=== PATIENT | male | born 1975 | race African-American/Black ===

== ENCOUNTER 2016-07-20 20:34 | Inpatient (IN) | payer OTHER ==
--- NOTE | ~2016-07-20 | CO ---
Unit #: [id number] #: [id number] Patient: GRICEL BACON JR [id number] [address] [place], [place] [address] [id number] MR#: [id number] NAME: GRICEL BACON ROOM: 215 Age: 40 Sex: M Admission Date: 07/21/2016 : 1975 Attending Physician: Julio César Fiath III, M.D. Primary Care Physician: No Primary Care Physician CONSULTATION REPORT REASON FOR CONSULTATION Medical management. HISTORY OF PRESENT ILLNESS The patient is a 40-year-old -Citizen Of [place] male, relatively healthy, who states that approximately 48 hours ago he began developing crampy abdominal pain and/or discomfort, nausea, vomiting episodes as well. He had several episodes of loose stool. He denied any sick contacts. He went to a local [facility] who instructed him to go the emergency room for evaluation. While he was evaluated in the emergency room, he underwent a CT abdomen and pelvis which showed colitis and he was actually admitted under the service of [facility]. We were asked to manage his blood pressure as his systolic blood pressures remained elevated greater than 160 despite being on his home medications. PAST MEDICAL HISTORY 1. History of hypertension. 2. Alcohol abuse. 3. Ongoing tobacco abuse. SOCIAL HISTORY The patient smokes on a daily basis. He drinks fairly frequently anywhere from five to six days a week. He has been doing so for many years. He denies any illicit drugs. He states that occasionally he does smoke marijuana. PAST SURGICAL HISTORY None. ALLERGIES No known drug allergies. HOME MEDICATIONS Norvasc 5 mg p.o. daily. REVIEW OF SYSTEMS Please see HPI. Twelve point otherwise negative except for those positives noted in the HPI. PHYSICAL EXAMINATION VITAL SIGNS: Temperature 98.6, pulse 86, respiratory rate 18, blood Unit #: [id number] #: [id number] Patient: GRICEL BACON JR pressure 172/111. GENERAL APPEARANCE: The patient is a thin 40-year-old -Citizen Of [place] male lying comfortably, in no acute distress. HEAD EXAM: Atraumatic, normocephalic. EAR EXAM: Tympanic membranes do not reveal any erythema or injection. NECK EXAM: Supple. CVS: S1, S2 without murmur. RESPIRATORY: Clear. GI/ABDOMEN: Diffuse tenderness noted. No rebound, no guarding. EXTREMITIES: Lower extremity exam - no evidence of any lower extremity edema. No calf tenderness. NEUROLOGICAL EXAM: The patient is A and O x3. No evidence of any focal neuro deficits. PSYCHIATRIC: The patient demonstrates normal affect and mood. DIAGNOSTIC STUDIES LABORATORY: Initial laboratory studies shows a CBC with a white count of 10.5, hemoglobin of 15.3. IMAGING: Aforementioned CT abdomen and pelvis performed showing findings consistent with thick walled extending colitis with associated pericolic soft tissue stranding. The patient was also noted to have atherosclerotic involvement of the abdominal aorta, superior mesenteric artery as well as inferior mesenteric artery. Both appear to be patent. However, his abdominal aorta did appear to have some atherosclerotic involvement. There also was noted to be a right middle lobe infiltrate seen on the aforementioned CT. His initial urinalysis was also positive. Culture is currently pending. Initial electrolytes were within normal limits. Lipase level at 19. LFTs normal. INITIAL ADMISSION DIAGNOSES 1. Colitis. 2. Atherosclerosis within the abdominal aortic area. 3. Right middle lobe infiltrate seen on CT abdomen and pelvis. 4. Hypertension. 5. Alcohol abuse. 6. Tobacco abuse. 7. Questionable compliance with blood pressure medications. 8. Intractable nausea and vomiting. PLAN IV antibiotics per [facility]. I will also add a CT chest non-contrast to ascertain if true infiltrate is seen or not. Will also obtain vascular consultation in regards to the atherosclerosis. He may ultimately require CT abdomen with contrast but I will defer that decision to vascular. Pain management has already been written for by primary service. We will resume his Norvasc 5 mg on a daily basis. If it does not control his blood pressure, this will be increased. He will have p.r.n. medications as well. Thank you Dr. Faith for this consultation. We will continue to follow the patient along with you. Please note - secondary to patient's history of alcohol abuse, I will initiate a banana bag and will watch for any evidence of DTs. Plans have been reviewed with patient in detail. He is full code. Unit #: [id number] #: [id number] Patient: GRICEL BACON JR Dictated by... Ervin Antoine/shayla TD: 07/21/2016 12:19 JOB #: [id number] CONSULTATION REPORT Page 1 of 1 X Gilma Doty MD CONSULTATION REPORT
--- NOTE | ~2016-07-20 | CT2 ---
[facility] A Service of [facility] RADIOLOGY TEXT RESULTS PATIENT: GRICEL BACON JR LOCATION: C2A : [birth year] UNIT #: [id number] AGE: [address]: Julio César Faith III, MD SEX: M ORDER DR: [id number] [facility] [address] [facility]. [place], [place] [address] [id number] I MR#: [id number] Acc #: [id number] NAME: GRICEL BACON : 1975 SEX: M STUDY DATE/TIME: 07/20/2016 22:31 UNIT: [facility] ROOM: [facility] STUDY DESCRIPTION: CT Abd and Pelv W Cont Attending Physician: Julio César Faith III, M.D. Ordering Physician: William Samuels D.O. Primary Care Physician: Primary Care Physician No MEDICAL IMAGING REPORT This report is preliminary unless electronic signature is present EXAM CT of the abdomen and pelvis with contrast INDICATIONS Nausea, vomiting and diarrhea since this morning. Patient also reports abdominal pain across the midline. TECHNIQUE Axial CT images were obtained from the dome of the diaphragm through the symphysis pubis following the administration of oral and intravenous contrast material. This CT exam was performed with one or more of the following radiation dose reduction techniques: automatic exposure control, adjustment of mA and/or kV according to patient size, and iterative reconstruction. FINDINGS There is a 1.0 cm area of nodularity seen within the right middle lobe. This may simply reflect some atelectasis or infiltrate but short-term CT followup in three months is recommended to document stability or resolution. Spleen is rather atrophic in appearance. There may be some diffuse hepatic steatosis incompletely evaluated on this contrast-enhanced study. No focal hepatic lesions are seen. Gallbladder appears unremarkable. Adrenal glands appear unremarkable as does the pancreas. Kidneys appear normal. No solid or cystic renal masses are seen. Gallbladder is also unremarkable. This patient has atherosclerotic involvement of the abdominal aorta which continues into the iliac vessels. Prostate gland and urinary bladder within normal limits. This patient's colon is diffusely thick-walled. This extends from the stomach to the splenic flexure. There is pericolonic soft tissue stranding. Findings are felt to represent colitis. The patient's appendix proximally appears somewhat prominent in size measuring up to about 7.0 mm. However, I think that the appearance actually may be related to some secondary involvement [facility] A Service of [facility] RADIOLOGY TEXT RESULTS PATIENT: GRICEL BACON JR LOCATION: [facility] [address] : [birth year] UNIT #: [id number] AGE: [address]: Julio César Faith III, MD SEX: M ORDER DR: from the inflammation of the cecum rather than to actual appendicitis. This colitis could be infectious or inflammatory in nature but distribution and the presence of atherosclerotic disease would certainly raise the possibility of ischemic colitis, although the superior mesenteric artery and inferior mesenteric artery both appear widely patent. Patient is noted have a separate origin of the left gastric artery from the abdominal aorta. No pneumatosis or free air is seen. No free fluid is identified. Review of bony windows does not demonstrate any aggressive osseous abnormalities. IMPRESSION 1. This patient's colon appears thick-walled extending from the cecum all the way to the splenic flexure. There is associated pericolonic soft tissue stranding. Findings are characteristic of colitis. Infectious or inflammatory etiologies would be in the differential, although ischemic colitis would be another consideration given the distribution. Of note, while the patient does have atherosclerotic involvement of the abdominal aorta, the superior mesenteric artery and inferior mesenteric artery both appear widely patent. 2. The patient's appendix does appear somewhat dilated near its confluence with the cecum, however I suspect this is probably related to some secondary involvement by the inflammation within the cecum. Certainly the more distal aspect of the appendix does not appear dilated. 3. The patient does have some consolidation within the right middle lobe. This certainly could reflect some atelectasis or even some infiltrate. However I would suggest short-term CT followup in three months to document stability or resolution. 4. Please see the body of the report for any other additional incidental findings. Dictated by... Eloisa Mccall M.D. THIS IS AN ELECTRONICALLY VERIFIED REPORT Eloisa Mccall M.D. at 07/21/2016 11:01 AM DEBORAH/rigo TD: 07/21/2016 08:46 JOB #: [id number] MEDICAL IMAGING REPORT Page 1 of 1 COPY
--- NOTE | ~2016-07-20 | HP ---
Unit #: [id number] #: [id number] Patient: GRICEL RVIAS JR [id number] [address] [place], [place] [address] [id number] I MR#: [id number] NAME: GRICEL RIVAS ROOM: 215 Age: 40 Sex: M Admission Date: 07/21/2016 : 1975 Attending Physician: Julio César Faith III, M.D. Primary Care Physician: No Primary Care Physician HISTORY AND PHYSICAL HISTORY OF PRESENT ILLNESS Mr. Rivas is a 40-year-old black male who was fairly well until approximately 48 hours ago when he started developing crampy abdominal pain with nausea, vomiting and two episodes of explosive diarrhea. The patient was seen in the emergency room at [facility] and did an x-ray and felt like he needed to be transferred to one of the emergency rooms so a CAT scan could be done. The patient was seen in the emergency room. CT scan showed colitis from his cecum to the splenic flexure with no perforation, no abscess formation. Etiology is unclear but certainly infectious or inflammatory colitis could have been a possibility. PAST MEDICAL HISTORY He has had a history of hypertension in the past but he has not had any problems with it. SOCIAL HISTORY He is a nonsmoker, nondrinker. No illicit drug use as noted. He does work outside the home. ALLERGIES He has no known allergies. HOME MEDICATIONS Amlodipine. REVIEW OF SYSTEMS He denies any other respiratory, renal or metabolic diseases. PHYSICAL EXAMINATION GENERAL APPEARANCE: Cooperative, alert, white male. VITAL SIGNS: Temperature 98. Pulse 88. Respirations 18. Blood pressure 173/90. ENT: Clear. No jaundice. Pupils equal, reactive to light and accommodation. CHEST: Clear. CARDIAC: Rhythm is regular. No audible murmurs. ABDOMEN: Slightly distended but no peritoneal signs. No significant tenderness. No rebound, guarding or rigidity. No CVA tenderness. No palpable bladder. EXTREMITIES: Full range of motion, 1 to 2+ peripheral pulses bilaterally. No specific edema. No clubbing or cyanosis. IMPRESSION Colitis secondary to either food poisoning versus acute colitis with some Unit #: [id number] #: [id number] Patient: GRICEL RIVAS JR type of inflammatory bowel disease. PLAN At this time, we will go ahead and treat the patient with IV antibiotics and check some stool specimens. We will follow him very closely. Dictated by Ervin Wiggins/ryland TD: 07/21/2016 06:10 JOB #: [id number] HISTORY AND PHYSICAL Page 1 of 1 X Ahmet Zuniga MD X HISTORY AND PHYSICAL
--- NOTE | ~2016-07-20 | CO ---
Unit #: [id number] #: [id number] Patient: GRICEL RIVAS JR [id number] [address] [address] [id number] I MR#: [id number] NAME: GRICEL RIVAS ROOM: 215 Age: 40 Sex: M Admission Date: 07/21/2016 : 1975 Attending Physician: Julio César Faith III, M.D. Primary Care Physician: No Primary Care Physician CONSULTATION REPORT HISTORY OF PRESENT ILLNESS Mr. Rivas is a 40-year-old male who presented with crampy abdominal pain for about 2 days prior to admission. He had nausea and vomiting, possibly a low-grade fever. He has also had a cough productive of slimy sputum. He has had no hemoptysis. He denied any chest pain. He was admitted. A CT scan of the abdomen and pelvis suggested right-sided colitis. The radiologist read infiltrate in the right middle lobe. A CT scan of the chest was done, which showed right upper lobe density, pneumonia versus mass, anteriorly abutting the mediastinum. He says he is currently feeling better and is no longer coughing up any sputum. He has stopped smoking cigarettes. PAST MEDICAL HISTORY 1. Hypertension. 2. History of alcohol abuse. Currently no tobacco. He does smoke cigarettes. PAST SURGICAL HISTORY Negative. SOCIAL HISTORY He drinks fairly frequently, five to six days a week. He has been doing so for years. Denies any illicit drugs. Denies IV drug use. Denies any history of HIV positivity. ALLERGIES No known drug allergies. CURRENT HOSPITAL MEDICATIONS 1. Protonix. 2. Levaquin. 3. Flagyl. 4. Morphine. HOME MEDICINES Norvasc. REVIEW OF SYSTEMS Ten point systems otherwise negative. PHYSICAL EXAMINATION VITALS: Blood pressure 165/84, pulse 93, respiratory rate 16, afebrile. HEENT: Normocephalic, atraumatic. Pupils equal, round and reactive. Sclerae nonicteric. Nasal passages patent. Posterior pharynx clear. Unit #: [id number] #: [id number] Patient: GRICEL RIVAS JR Mucous membranes moist. NECK: Supple. Trachea midline. No cervical or supraclavicular lymphadenopathy. LUNGS: Clear. HEART: Regular rate and rhythm. Could not appreciate murmur, rub or gallop. ABDOMEN: Nontender. Bowel sounds present. No hepatosplenomegaly. EXTREMITIES: Without clubbing, cyanosis or edema. NEUROLOGIC: Awake, alert and oriented times three. Cranial nerves intact. Muscle strength symmetric bilaterally. Affect calm. DIAGNOSTIC STUDIES LABORATORY: BMP is fairly unremarkable. Sodium is 134. Liver function tests normal. Lactic acid 0.9. Coags normal. White count initially 11,300, currently 7.6. Hematocrit 47.7, platelet count normal. Stool for culture is negative. Stool for c-diff negative. Urine culture negative. ASSESSMENT 1. Right upper lobe density, pneumonia versus mass. 2. Tobacco abuse. 3. Colitis. 4. History of alcohol use. RECOMMENDATION This could represent an inflammatory process, i.e. pneumonia versus malignancy. I would recommend treating with a course of Levaquin for 7 to 8 days, 750 mg p.o. daily. I would recommend reimaging with CT scan of the chest in one month. If it has not decreased in size or resolved, will need tissue diagnosis to rule out malignancy. Dictated by... Ervin Ashley/carol TD: 07/24/2016 13:00 JOB #: [id number] CC: Tino Mccloud M.D. CONSULTATION REPORT Page 1 of 1 X Tino Mccloud MD CONSULTATION REPORT
--- NOTE | ~2016-07-20 | CT57 ---
[facility] A Service of [facility] RADIOLOGY TEXT RESULTS PATIENT: GRICEL BACON JR LOCATION: A : [birth year] UNIT #: [id number] AGE: [address]: Julio César Faith III, MD SEX: M ORDER DR: [id number] [place] [address] [facility]. [place], [place] [address] [id number] I MR#: [id number] Acc #: [id number] NAME: GRICEL BACON : 1975 SEX: M STUDY DATE/TIME: 07/21/2016 13:31 UNIT: [facility] ROOM: [facility] STUDY DESCRIPTION: CT Chest Wo Cont Attending Physician: Julio César Faith III, M.D. Ordering Physician: Gilma Doty M.D. Primary Care Physician: Primary Care Physician No MEDICAL IMAGING REPORT This report is preliminary unless electronic signature is present REVISED REPORT SEE ADDENDUM EXAM CT scan of the chest without contrast. INDICATION Abnormal abdomen CT scan. Lung consolidation. General abdominal pain and cramping. TECHNIQUE CT of the chest was performed without contrast. Coronal and sagittal reformatted images were obtained. This CT exam was performed with one or more of the following radiation dose reduction techniques: automatic exposure control, adjustment of mA and/or kV according to patient size, and iterative reconstruction. COMPARISON There are no comparison chest CTs available. The study is correlated with the CT of the abdomen and pelvis from 07/20/16. FINDINGS There is a lobulated mass-like density within the medial aspect of the left upper lobe measuring 3.8 x 3.1 cm. There is minimal bibasilar atelectasis. There is no evidence of lymphadenopathy or pleural effusion. Limited imaging of the upper abdomen demonstrates some high attenuation material within the gallbladder, new since the CT from yesterday, likely reflecting vicarious excretion of contrast. The bone windows are unremarkable. IMPRESSION There is a mass-like density in the medial aspect of the right upper lobe measuring 3.8 x 3 cm with lobulated margins. It is indeterminate. [facility] A Service of [facility] RADIOLOGY TEXT RESULTS PATIENT: GRICEL BACON JR LOCATION: [facility] 215-01 : [birth year] UNIT #: [id number] AGE: [address]: Julio César Faith III, MD SEX: M ORDER DR: Differential diagnosis includes a dense area of pneumonia versus a mass. Correlate clinically. If the patient has signs and symptoms of pneumonia, than a followup chest CT in 2-3 months will be recommended to document clearing. If the patient is asymptomatic without any signs or symptoms of pneumonia, then this could be further evaluated with a PET/CT. Also correlate with any risk factors for malignancy such as smoking. Dictated by... Wagner George M.D. THIS IS AN ELECTRONICALLY VERIFIED REPORT Wagner George M.D. at 07/22/2016 7:15 AM MOE/ibeth TD: 07/21/2016 17:47 JOB #: [id number] ADDENDUM EXAM CT chest without contrast 07/21/2016. ADDENDUM Verification is made of the location of the lung abnormality. The lung abnormality or mass is located within the right upper lobe. Dr. Ch and I have discussed this at the time of this addendum. Dictated by... Mary Brown M.D. THIS IS AN ELECTRONICALLY VERIFIED REPORT Mary Brown M.D. at 08/02/2016 9:29 AM ASHLEY/mara TD: 07/30/2016 17:28 JOB #: [id number] MEDICAL IMAGING REPORT Page 1 of 1 COPY
--- NOTE | ~2016-07-20 | DS ---
Unit #: [id number] #: [id number] Patient: GRICEL BACON JR [id number] [address] [address] [id number] I MR#: [id number] NAME: GRICEL BACON ROOM: 215 Age: 40 Sex: M Admission Date: 07/21/2016 : 1975 Discharge Date: 07/25/2016 Attending Physician: Julio César Faith III, M.D. Primary Care Physician: No Primary Care Physician DISCHARGE SUMMARY ADMITTING PHYSICIAN Dr. Julio César Faith. CONSULTATIONS 1. Hospitalist. 2. Pulmonary. PROCEDURE PERFORMED None. ADMITTING DIAGNOSIS Colitis. DISCHARGE DIAGNOSIS Colitis. SECONDARY DIAGNOSES 1. History of alcohol abuse. 2. Questionable right upper lobe density, pneumonia versus mass. BRIEF HOSPITAL COURSE This is a 40-year-old -[place] gentleman who presented with abdominal pain. He clinically had colitis. He was started on antibiotics and seemed to improve over the course of the hospitalization. He also had imaging which showed a right upper lobe density that was concerning for either pneumonia versus mass. He was treated with antibiotics and the plan for that is outpatient CT scan with pulmonary. He was advanced to a regular diet and tolerating that without any problems. DISPOSITION Discharge to home. FOLLOWUP He is to follow up with pulmonary for outpatient CT scan. He was given a prescription for Levaquin and Flagyl. I will have my office contact him for colonoscopy in two to three weeks. He has otherwise been instructed to call the office if he has any worsening of symptoms. Dictated by... Julio César Faith III, M.D. Unit #: [id number] #: [id number] Patient: GRICEL BACON JR PRIYANKA/christine TD: 07/26/2016 12:48 JOB #: [id number] DISCHARGE SUMMARY Page 1 of 1 X Julio César Faith III, MD DISCHARGE SUMMARY
[2016-07-20 21:05] LABS: BASOPHIL% 0.4 % (0-2.5); EOSINOPHIL% 0.1 % (0.0-7.0); HEMATOCRIT 49.1 % (38.0-50.0); HEMOGLOBIN 16.7 gm/dL (13.0-16.0); LYMPHOCYTE# 0.6 X10e3 (1.0-3.5); MEAN CELL VOLUME 99.3 FL (83-96); MEAN CORPUSCULAR HEMOGLOBIN 33.7 PG (28-34); MEAN PLATELET VOLUME 7.4 FL (6.5-11.5); MONOCYTE# 0.9 X10e3 (0-1.0); MONOCYTE% 7.7 % (3.0-12.0); NEUTROPHIL# 9.8 X10e3 (1.5-7.1); NEUTROPHIL% 86.8 % (40-75); PLATELET COUNT 247 X10e3 (140-420); RED BLOOD COUNT 4.94 X10e (3.90-5.60); RED CELL DISTRIBUTION WIDTH 14.4 % (11.0-15.5); WHITE BLOOD COUNT 11.3 X10e3 (4.0-10.5)
[2016-07-20 21:07] LABS: DIFF IND NO
[2016-07-20 21:30] LABS: ALBUMIN SERUM 4.8 g/dL (3.5-5.0); BILIRUBIN, DIRECT 0.1 mg/dL (0.0-0.2); BILIRUBIN,INDIRECT 0.5 mg/dL (0.0-0.9); BILIRUBIN,TOTAL 0.6 mg/dL (0.2-2.0); BUN/CREATININE RATIO 11.11; CALCIUM SERUM 9.9 mg/dL (8.4-10.2); CREATININE SERUM 0.9 mg/dL (0.6-1.4); GLOM FILT RATE Estimated 105.7 mL/min (>60); POTASSIUM 3.7 mmol/L (3.5-5.1); PROTEIN TOTAL SERUM 8.5 g/dL (6.0-8.3)
[2016-07-20 21:31] LABS: URINE SOURCE CLEAN CATCH
[2016-07-20 21:39] LABS: URINE APPEARANCE CLEAR; URINE BILIRUBIN NEG (NEG); URINE BLOOD 1+ (NEG); URINE COLOR DK YELLOW; URINE GLUCOSE NEG (NEG); URINE KETONE 2+ (NEG); URINE LEUKOCYTE ESTERASE NEG (NEG); URINE NITRATE NEG (NEG); URINE PROTEIN 2+ (NEG); URINE SPECIFIC GRAVITY 1.031 (1.003-1.035)
[2016-07-20 21:41] LABS: CULTURE INDICATED? YES; URINE BACTERIA AUWI NEG (NEGATIVE); URINE SQUAMOUS EPITHELIAL CELL NONE SEEN /[HPF]
[2016-07-20 21:51] LABS: PARTIAL THROMBOPLASTIN TIME 29.8 SECONDS (23.5-31.3); PROTHROMBIN TIME (PATIENT) 10.8 SECONDS (9.6-11.5)
[2016-07-21] MEDS ORDERED: AMLODIPINE BESYL5 MG PO (00:05)
[2016-07-21 05:52] LABS: BASOPHIL% 0.4 % (0-2.5); EOSINOPHIL% 0.4 % (0.0-7.0); HEMOGLOBIN 15.3 gm/dL (13.0-16.0); LYMPHOCYTE# 0.8 X10e3 (1.0-3.5); LYMPHOCYTE% 7.6 % (17.0-45.0); MEAN PLATELET VOLUME 7.8 FL (6.5-11.5); MONOCYTE# 1.1 X10e3 (0-1.0); MONOCYTE% 10.8 % (3.0-12.0); NEUTROPHIL# 8.5 X10e3 (1.5-7.1); NEUTROPHIL% 80.8 % (40-75); PLATELET COUNT 234 X10e3 (140-420); RED CELL DISTRIBUTION WIDTH 14.7 % (11.0-15.5); WHITE BLOOD COUNT 10.5 X10e3 (4.0-10.5)
[2016-07-21 06:00] LABS: DIFF IND NO
[2016-07-22 05:48] LABS: HEMATOCRIT 45.4 % (38.0-50.0); HEMOGLOBIN 15.2 gm/dL (13.0-16.0); MEAN CELL VOLUME 99.7 FL (83-96); MEAN CORPUSCULAR HEMOGLOBIN 33.5 PG (28-34); MEAN CORPUSCULAR HGB CONC 33.6 g/dL (30-36); MEAN PLATELET VOLUME 7.6 FL (6.5-11.5); RED BLOOD COUNT 4.55 X10e (3.90-5.60); RED CELL DISTRIBUTION WIDTH 14.5 % (11.0-15.5); WHITE BLOOD COUNT 8.7 X10e3 (4.0-10.5)
[2016-07-22 07:16] LABS: ALBUMIN SERUM 3.5 g/dL (3.5-5.0); BILIRUBIN,TOTAL 0.7 mg/dL (0.2-2.0); BUN/CREATININE RATIO 6.25; CALCIUM SERUM 8.5 mg/dL (8.4-10.2); CREATININE SERUM 0.8 mg/dL (0.6-1.4); GLOM FILT RATE Estimated 128.7 mL/min (>60); POTASSIUM 3.9 mmol/L (3.5-5.1); PROTEIN TOTAL SERUM 6.5 g/dL (6.0-8.3)
[2016-07-23 06:06] LABS: HEMATOCRIT 47.7 % (38.0-50.0); MEAN CELL VOLUME 100.2 FL (83-96); MEAN CORPUSCULAR HEMOGLOBIN 33.6 PG (28-34); MEAN CORPUSCULAR HGB CONC 33.5 g/dL (30-36); MEAN PLATELET VOLUME 7.7 FL (6.5-11.5); RED BLOOD COUNT 4.75 X10e (3.90-5.60); RED CELL DISTRIBUTION WIDTH 14.4 % (11.0-15.5); WHITE BLOOD COUNT 7.6 X10e3 (4.0-10.5)
[2016-07-23 07:14] LABS: ALBUMIN SERUM 3.6 g/dL (3.5-5.0); BILIRUBIN,TOTAL 0.7 mg/dL (0.2-2.0); CALCIUM SERUM 8.7 mg/dL (8.4-10.2); CREATININE SERUM 0.6 mg/dL (0.6-1.4); GLOM FILT RATE Estimated 144.8 mL/min (>60); MAGNESIUM 1.9 mg/dL (1.6-3.0); POTASSIUM 3.7 mmol/L (3.5-5.1); PROTEIN TOTAL SERUM 6.7 g/dL (6.0-8.3)
[2016-07-24 05:39] LABS: HEMATOCRIT 46.4 % (38.0-50.0); HEMOGLOBIN 15.7 gm/dL (13.0-16.0); MEAN CORPUSCULAR HEMOGLOBIN 33.7 PG (28-34); MEAN CORPUSCULAR HGB CONC 33.7 g/dL (30-36); MEAN PLATELET VOLUME 7.1 FL (6.5-11.5); RED BLOOD COUNT 4.64 X10e (3.90-5.60); RED CELL DISTRIBUTION WIDTH 13.9 % (11.0-15.5); WHITE BLOOD COUNT 6.1 X10e3 (4.0-10.5)
[2016-07-24 06:32] LABS: BLOOD UREA NITROGEN <5 mg/dL (9-23); BUN/CREATININE RATIO 6.25; CALCIUM SERUM 8.6 mg/dL (8.4-10.2); CARBON DIOXIDE 28 mmol/L (22-31); CHLORIDE 99 mmol/L (100-111); CREATININE SERUM 0.8 mg/dL (0.6-1.4); GLOM FILT RATE Estimated 128.7 mL/min (>60); GLUCOSE FASTING 91 mg/dL (70-110); POTASSIUM 3.7 mmol/L (3.5-5.1); SODIUM 135 mmol/L (135-145)
[2016-07-25 05:28] LABS: HEMATOCRIT 46.6 % (38.0-50.0); HEMOGLOBIN 15.7 gm/dL (13.0-16.0); MEAN CELL VOLUME 98.5 FL (83-96); MEAN CORPUSCULAR HEMOGLOBIN 33.3 PG (28-34); MEAN CORPUSCULAR HGB CONC 33.8 g/dL (30-36); MEAN PLATELET VOLUME 6.9 FL (6.5-11.5); RED BLOOD COUNT 4.73 X10e (3.90-5.60); RED CELL DISTRIBUTION WIDTH 14.4 % (11.0-15.5); WHITE BLOOD COUNT 5.3 X10e3 (4.0-10.5)
[2016-07-25] MEDS ORDERED: LEVAQUIN750 M1 PO (07:30)
[2016-07-25] MEDS ORDERED: FLAGYL250 M1 PO (07:30)
== END 2016-07-25 08:07 | disposition home or self-care (01) | DRG 391 ==
LOC: CED 20:34 → CEDOF 07-21 00:20 → C2A 07-21 00:46 → CED 07-21 00:46 → C2A 07-21 00:46 → CEDOF 07-21 01:38 → C2A 07-21 02:02
PROVIDERS: Emergency Medicine; Family Medicine; Nurse Practitioner; Surgery
DX: K52.9 Noninfective gastroenteritis and colitis, unspecified (principal); J18.9 Pneumonia, unspecified organism; R91.8 Other nonspecific abnormal finding of lung field; I10 Essential (primary) hypertension; F17.210 Nicotine dependence, cigarettes, uncomplicated; I70.0 Atherosclerosis of aorta; F10.10 Alcohol abuse, uncomplicated; Z91.14 Patient's other noncompliance with medication regimen
CPT/HCPCS: 36415; 71250; 74177; 80048; 80053; 80061; 80076; 81003; 83605; 83690; 83735; 85025; 85027; 85610; 85730; 87045; 87086; 87427; 87493; 87899; 96361; 96374; 96375; 99285; C9113; J1956; J2270; J2405; J3411; J3475; Q9967

== ENCOUNTER → 2016-08-31 | Outpatient (CLI) | payer OTHER ==
[~2016-08-31] MED LIST: AMLODIPINE BESYL5 MG PO; FLAGYL250 M1 PO; LEVAQUIN750 M1 PO
--- NOTE | ~2016-08-31 | CT57 ---
[facility] A Service of [facility] RADIOLOGY TEXT RESULTS PATIENT: GRICEL BACON JR LOCATION: [facility] : 73 UNIT #: [id number] AGE: [address]: Natalya Love APRN SEX: M ORDER DR: [id number] [place] [id number] O MR#: [id number] Acc #: [id number] NAME: GRICEL BACON : 1975 SEX: M STUDY DATE/TIME: 08/31/2016 13:32 UNIT: [facility] ROOM: STUDY DESCRIPTION: CT Chest Wo Cont Attending Physician: Natalya Love A.P.R.N. Referring Physician: Natalya Love A.P.R.N. Ordering Physician: Natalya Love A.P.R.N. Primary Care Physician: Natalya Love A.P.R.N. MEDICAL IMAGING REPORT This report is preliminary unless electronic signature is present. EXAM CT chest without contrast INDICATION Followup lung mass. Abnormal finding diagnostic imaging of the chest. Followup. PROCEDURE Unenhanced CT of the chest. This CT examination was performed with one or more of the following radiation dose reduction techniques: automatic exposure control, adjustment of mA and/or kV according to patient size, and iterative reconstruction. COMPARISON 07/21/2016. FINDINGS Previously demonstrated opacity along the medial aspect of the right upper lobe is smaller. It now measures 2.9 x 2.1 cm previously 4.2 x 2.8 cm. It is much less dense than on the prior. Otherwise, the lungs are clear. No adenopathy. No acute findings in the included upper abdomen. No aggressive appearing bone lesion. IMPRESSION The previously demonstrated opacity along the medial aspect of the right upper lobe is much less dense and has decreased in size since the previous study. This suggests a benign process likely improving pneumonia. Recommend attention on continued follow up to document complete resolution. Dictated by... Jimbo Nassar M.D. [facility] Service [facility] RADIOLOGY TEXT RESULTS PATIENT: GRICEL BACON JR LOCATION: [facility] : [birth year] UNIT #: [id number] AGE: [address]: Natalya Love APRN SEX: M ORDER DR: THIS IS AN ELECTRONICALLY VERIFIED REPORT Jimbo Nassar M.D. at 09/02/2016 10:44 AM WANDA/katia TD: 09/01/2016 08:41 JOB #: [id number] MEDICAL IMAGING REPORT Page 1 of 1
== END | disposition home or self-care (01) ==
LOC: SCT 13:02 → CCAT 13:02
DX: R93.8 Abnormal findings on diagnostic imaging of other specified body structures (principal)
CPT/HCPCS: 71250

== ENCOUNTER → 2016-10-27 | Outpatient (CLI) | payer OTHER ==
--- NOTE | ~2016-10-27 | CT57 ---
[facility] A Service of [facility] RADIOLOGY TEXT RESULTS PATIENT: GRICEL BACON JR LOCATION: [facility] [[email or web address]] : 73 UNIT #: [id number] AGE: [address]: Natalya Love APRN SEX: M ORDER DR: [id number] [id number] O MR#: [id number] Acc #: [id number] NAME: GRICEL BACON : 1975 SEX: M STUDY DATE/TIME: 10/27/2016 10:39 UNIT: [facility] [[email or web address]] ROOM: STUDY DESCRIPTION: CT Chest Wo Cont Attending Physician: Natalya Love A.P.R.N. Referring Physician: Natalya Love A.P.R.N. Ordering Physician: Natalya Love A.P.R.N. Primary Care Physician: Natalya Love A.P.R.N. MEDICAL IMAGING REPORT This report is preliminary unless electronic signature is present. EXAM CT chest without contrast DATE 10/27/2016 HISTORY 40-year-old male follow up from pneumonia diagnosed 07/21/2016. Evaluate for resolution of right upper lobe lung density. Additional history of hypertension. COMPARISON CT chest 08/31/2016, 07/21/2016. PROCEDURE 5 mm axial images through the chest without contrast. Sagittal and coronal reformatted images were obtained. This CT exam was performed with one or more of the following radiation dose reduction techniques: Automatic exposure control, adjustment of mA and/or kV according to patient size, and iterative reconstruction. FINDINGS 3.1 x 2.2 cm consolidative change in the medial right upper lobe abutting the mediastinum (series 5 image 27) appears unchanged compared to 08/31/2016. It contains mild central bronchiolectasis. However, as was previously described, it is smaller and less dense than on the original study from 07/21/2016 where it measured 4.2 x 2.8 cm. No new airspace disease is seen. No pathologic adenopathy is identified. No pericardial effusion. No pleural effusion. Shotty left axillary lymph node unchanged, favored to represent benign reactive finding. Included portions of the upper abdominal organs have a normal noncontrast appearance. No acute osseous abnormalities. [facility]. [facility] A Service of [facility] & [facility] RADIOLOGY TEXT RESULTS PATIENT: GRICEL BACON JR [id number] [birth year] UNIT #: [id number] AGE: [address]: Natalya Love APRN SEX: M ORDER DR: IMPRESSION 1. 3.1 x 2.2 cm consolidative change in the medial right upper lobe is unchanged from the 08/31/2016 examination. When compared to the more remote study from 07/21/2016 it has diminished in size and density. Continued short-term CT chest surveillance imaging versus PET/CT correlation would be recommended. 2. No new chest findings since 08/31/2016. STAT * RESULT Dictated by... Mary Brown M.D. THIS IS AN ELECTRONICALLY VERIFIED REPORT Mary Brown M.D. at 10/29/2016 8:42 AM ASHLEY/kate TD: 10/28/2016 14:10 JOB #: [id number] MEDICAL IMAGING REPORT Page 1 of 1
== END | disposition home or self-care (01) ==
LOC: SCT 10:12
DX: R93.8 Abnormal findings on diagnostic imaging of other specified body structures (principal)
CPT/HCPCS: 71250